=== PATIENT | female | born 1975 | race Caucasian/White ===

== ENCOUNTER 2022-06-03 10:47 | Outpatient (CLI) | payer OTHER, SELFPAY ==
--- NOTE | 2022-06-03 12:35 | W.ANESCHARGE ---
Anesthesia Charges Start Date/Time Anesthesia Start Date: 06/03/22 Anesthesia Start Time: 11:33 Stop Date/Time Anesthesia Stop Date: 06/03/22 Anesthesia Stop Time: 12:30 Summary Emergency: No
== END 2022-06-03 10:48 | disposition home or self-care (01) ==
LOC: OP CLINIC 10:48
PROVIDERS: PCP Family Medicine; Visit Provider Surgery
DX: Z12.11 Encounter for screening for malignant neoplasm of colon (principal); K63.5 Polyp of colon; K62.1 Rectal polyp; K64.4 Residual hemorrhoidal skin tags; Z80.0 Family history of malignant neoplasm of digestive organs
CPT/HCPCS: 00811; 45385; 88305; J2704

== ENCOUNTER 2022-06-24 15:19 | Outpatient (CLI) | payer OTHER, SELFPAY ==
--- NOTE | 2022-06-24 15:20 | CRLHL7_ITS ---
For Patients: As a result of the Century Cures Act, medical imaging exams and procedure reports are released immediately into your electronic medical record. You may view this report before your referring provider. If you have questions, please contact your health care provider. BILATERAL SCREENING MAMMOGRAM WITH COMPUTER-AIDED DETECTION TECHNIQUE: CC and MLO views were obtained. These mammographic images have been obtained using full-field digital technique. These mammographic images were interpreted with the benefit of computer-aided detection. COMPARISON FILM: 06/11/16. FINDINGS: The breasts are heterogeneously dense, which may obscure small masses IMPRESSION: There is no radiographic evidence for malignancy. ASSESSMENT: BI-RADS Category 2: Benign RECOMMENDATION: Routine screening mammogram in 1 year. A lay language report of this examination will be provided to the patient. Merrick Segura M.D. Diagnostic Radiologist [email or web address] Transcribed: 1:41 p.mIssac hernandez/Dictated by: Merrick Segura MD @ 06/30/2022 9:11:00 AM (Electronically Signed)
== END 2022-06-24 15:20 | disposition home or self-care (01) ==
LOC: MAMMO 15:20
PROVIDERS: PCP Family Medicine; Visit Provider Family Medicine
DX: Z12.31 Encounter for screening mammogram for malignant neoplasm of breast (principal); R92.2 Inconclusive mammogram
CPT/HCPCS: 77067

== ENCOUNTER 2023-05-07 14:30 | Outpatient (REF) | payer OTHER, SELFPAY ==
[2023-05-07 16:07] LABS: Chloride* 105 mmol/L (96-114); Potassium* 3.9 mmol/L (3.6-5.1); Sodium* 137 mmol/L (135-149)
[2023-05-07 16:10] LABS: Anion Gap 7 mEq/L (7-15); Blood Urea Nitrogen* 11 mg/dL (5-24); Carbon Dioxide* 25 mmol/L (20-32); Cholesterol* 123 mg/dL (90-199); Creatinine* 0.6 mg/dL (0.5-1.5); Estimated Glomerular Filt Rate 111 ml/min
[2023-05-07 16:11] LABS: Calcium* 9.2 mg/dL (8.4-10.6); Glucose* 102 mg/dL (60-115); HDL Cholesterol* 44 mg/dL (>=50); Hemoglobin A1C* 4.8 % (0-5.6); LDL Cholesterol Calculated 62 mg/dL (<100); Triglycerides* 85 mg/dL (40-149)
[2023-05-07 16:13] LABS: C Reactive Protein* 0.5 mg/dL (0.5-1.0)
[2023-05-07 16:31] LABS: Basophils Absolute Auto 0.03 K/uL (0.00-0.30); Basophils Percent Auto 0.4 % (0.0-3.0); Eosinophils Absolute Auto 0.08 K/uL (0.00-0.50); Eosinophils Percent Auto 1.1 % (0.0-7.0); Hematocrit 40.4 % (33.0-51.0); Hemoglobin* 13.5 gm/dL (12.0-16.0); Immature Granulocytes Abs Auto 0.04 K/uL (0.00-0.30); Immature Granulocytes Pct Auto 0.6 %; Lymphocytes Percent Auto 26.4 % (20-44); Mean Corpuscular HGB Conc 33 gm/dL (32-36); Mean Corpuscular Hemoglobin 30 pg (26-34); Mean Corpuscular Volume 90 fL (80-100); Monocytes Percent Auto 6.5 % (0.0-11.0); Neutrophils Absolute Auto 4.69 K/uL (1.7-7.0); Platelet Count* 258 K/uL (140-440); RDW Coefficient of Variation % 12.3 % (11.5-15.5); White Blood Count* 7.21 K/uL (4.50-11.00)
[2023-05-07 16:32] LABS: Slide Review Reflex No
[2023-05-07 16:49] LABS: Fibrinogen* 305 mg/dL (200-450)
[2023-05-07 19:39] LABS: Erythrocyte SedimentationRate* 3 mm/hr (2-20)
[2023-05-10 14:17] LABS: Homocysteine, Total 5 umol/L (0-15)
[2023-05-10 16:34] LABS: Protein C Functional 103 % (83-168); Protein S Functional 80 % (57-131)
[2023-05-10 17:33] LABS: Antithrombin, Enzymatic 105 % (76-128)
[2023-05-10 21:34] LABS: Anti-Nuclear Ab(ANA)IgG ELISA None Detected (None Detected)
[2023-05-11 16:23] LABS: FACV Specimen Whole Blood; Factor V Leiden (F5) Mutation Negative
== END 2023-05-07 14:31 | disposition home or self-care (01) ==
LOC: NPINS 14:30
PROVIDERS: PCP Family Medicine
DX: H34.8320 Tributary (branch) retinal vein occlusion, left eye, with macular edema (principal)
CPT/HCPCS: 80048; 80061; 81241; 83036; 83090; 85025; 85300; 85303; 85306; 85384; 85610; 85613; 85651; 85730; 86039; 86140; 86146; 86147

== ENCOUNTER 2024-09-28 07:46 | Outpatient (CLI) | payer OTHER, SELFPAY ==
--- NOTE | 2024-09-28 07:45 | CRLHL7_ITS ---
For Patients: As a result of the Century Cures Act, medical imaging exams and procedure reports are released immediately into your electronic medical record. You may view this report before your referring provider. If you have questions, please contact your health care provider. INDICATION: BILATERAL SCREENING MAMMOGRAM, ASYMPTOMATIC 48 Y/O FEMALE COMPARISON: 06/24/22, 06/11/16 TECHNIQUE: CC and MLO views were obtained. These mammographic images have been obtained using full-field digital technique. These mammographic images were interpreted with the benefit of computer aided detection and tomosynthesis. BREAST COMPOSITION: There are scattered areas of fibroglandular density. FINDINGS: No suspicious findings. ASSESSMENT: BI-RADS 1 Negative RECOMMENDATION: Annual screening mammogram. A lay language report of this examination will be provided to the patient. Dictated by: Merrick Segura MD @ 10/06/2024 10:46:03 (Electronically Signed)
== END 2024-09-28 07:47 | disposition home or self-care (01) ==
LOC: MAMMO 07:47
PROVIDERS: PCP Family Medicine; Visit Provider Family Medicine
DX: Z12.31 Encounter for screening mammogram for malignant neoplasm of breast (principal)
CPT/HCPCS: 77063; 77067

== ENCOUNTER 2025-02-26 11:24 | Emergency (ER) | payer OTHER, SELFPAY ==
--- OUTSIDE RECORDS SUMMARY | 2025-02-26 11:26 | XMS_ITS | Encounter Summary ---
Author Organization [employer] Address [address], [place] [address] Care Team Providers Care Wood Boatbuilder Apprentice Name Role Phone Daisy Easley APRN, CNM Primary Care Provi vijay Encounter Details Date Type Department Care Team (Late st Contact Info) Description 12/05/2016 Consent for Procedure/Treatm ent [facility] [address] [place] [address]. [place] [address] Milena Bush MD [address] [place] [id number] INFORMED CONSENT FOR SKIN BIOPSY Social History Tobacco Use Types Packs/Day Years Used Date Smoking Tobacco: Never Alcohol Use Standard Drinks/Week Comments No 0 (1 standard drink = 0.6 oz pur e alcohol) Comments No Sex and Gender Information Value Date Recorded Sex Assigned at Not on file Legal Sex Female 5:36 AM CDT Gender Identity Not on file Sexual Orientation Not on file documented as of this encounter Plan of Treatment Not on file documented as of this encounter Visit Diagnoses Not on filedocumented in this encounter Care Teams Wood Boatbuilder Apprentice Relationship Specialty Start Date End Date Daisy Easley APRN, CNM PCP - General Certified Nurse Construction Field Engineer 12/04/16 documented as of this encounter
--- OUTSIDE RECORDS SUMMARY | 2025-02-26 11:26 | XMS_ITS | Clinical Summary ---
Author Organization [employer] Address [address] [place] [id number] Care Team Providers Care Transport Rn Name Role Phone Pcp, No Primary Care Provider Unavailabl e Allergies Active Allergy Reactions Criticality Noted Date Comments Penicillins *Unknown 07/21/2015 Sulfa (Sulfonamide Antibiotics) *Unknown 07/03 Medications buPROPion (WELLBUTRIN XL) 150 mg Extended-Release tablet Take 1 tablet by mouth every morning. 0 07/21/2015 Active escitalopram oxalate (LEXAPRO) 5 mg tablet Take 5 mg by mouth once daily. 05/30/2021 Active Active Problems Problem Noted Date Diagnosed Date Adjustment disorder with depressed mood 02/14/20 08 Family History Medical History Relation Name Comments Good Health Daughter 1 Good Health Daughter 2 Good Health Son Relation Name Status Comments Daughter 1 Daughter 2 Son Social History Tobacco Use Types Packs/Day Years Used Date Smoking Tobacco: Never Smokeless Tobacco: Never Tobacco Cessation:Counseling Given: Yes Comments Unknown Sex and Gender Information Value Date Recorded Sex Assigned at Female 07/26/2020 7:37 AM RFID DEVELOPER Legal Sex Female 5:24 AM RFID DEVELOPER Gender Identity Female 07/26/2020 7:37 AM RFID DEVELOPER Sexual Orientation Straight 07/26/2020 7: 37 AM RFID DEVELOPER Obstetrics History Last Filed Vital Signs Vital Sign Reading Time Taken Comments Blood Pressure 104/69 07/21/2015 12:50 PM RFID DEVELOPER Pulse 82 07/02/2021 2:05 PM RFID DEVELOPER Temperature 36.8 C (98.2 F) 07/21/2015 12:50 PM RFID DEVELOPER Respiratory Rate - - Oxygen Saturation 98% 07/02/2021 2:05 PM RFID DEVELOPER Inhaled Oxygen Concentration - - Weight 73.5 kg (162 lb) 07/02/2021 2:05 PM RFID DEVELOPER Height - - Body Mass Index - - Plan of Treatment Health Maintenance Due Date Last Done Comments Tetanus booster 1985 HIV for age 15-65 1989 BMI (ht and wt on same day) for age 18+ 1992 Hepatitis C screening for age 18-79 1992 Hepatitis B series for 19+ ( 1 of 3 - 19+ 3-dose series) 1993 Pap test for age 21-65 12/18/1995 Colonoscopy through age 75 12/18/2019 Lipids for age 45-75 12/18/2019 Mammogram for age 45-75 12/18/2019 Depression screening for age 12+ 08/20/2021 08/21/19 21 Pneumococcal series for age 50+ (1 of 1 - PCV) 2024 Zoster (shingles) series for age 50+ (1 of 2) 2024 COVID-19 vaccine series ( - 2024- season) 2025 04/17/2021, 06/27/2020, 06/06/2020 Influenza Vaccine (#1) 2025 RSV vaccine for adults or pr egnancy (1 - 1-dose 75+ series) 2049 Insurance MEDICA CHOICE Care Teams Transport Rn Relationship Specialty Start Date End Date Pcp, No . PCP - General 10/02/15
--- OUTSIDE RECORDS SUMMARY | 2025-02-26 11:27 | XMS_ITS | Clinical Summary ---
Author Organization [employer] Address [address] [place] [address] Care Team Providers Care Dispatcher Motor Vehicle Name Role Phone Daisy Easley APRN, CNM Primary Care Provi vijay Source Comments You are receiving this document as you are listed as the primary care provider,follow-up provider, or the patient has been referred to you for consultation.This is in compliance with the Medicare and[facility] EHR Incentive Program,which states Providers who transition their patient to another setting of careor provider of care or refers their patient to another provider of care shouldprovide summary care record for each transition of care or referral. [employer] Allergies Active Allergy Reactions Criticality Noted Date Comments Penicillins 09/15/2006 Sulfa Antibiotics 09/15/2006 Medications buPROPion (WELLBUTRIN SR) 150 MG 12 hour release tablet Take 150 mg by mouth two times a day. Active Active Problems Problem Noted Date Diagnosed Date 01/18/2013 Immunizations Immunization Administration Dates Next Due Pfizer Monovalent 12+ Purple Top 06/27/2020,0 10/2020 Td (7+ yrs) 09/15/2006 Social History Tobacco Use Types Packs/Day Years Used Date Smoking Tobacco: Never Alcohol Use Standard Drinks/Week Comments No 0 (1 standard drink = 0.6 oz pur e alcohol) Comments No Sex and Gender Information Value Date Recorded Sex Assigned at Not on file Legal Sex Female 5:36 AM CDT Gender Identity Not on file Sexual Orientation Not on file Last Filed Vital Signs Vital Sign Reading Time Taken Comments Blood Pressure 109/67 09/07/2016 4:29 PM CDT Pulse 77 09/07/2016 4:29 PM CDT Temperature 36.6 C (97.8 F) 09/07/2016 4:29 PM CDT Respiratory Rate 20 09/15/2006 4:13 AM CDT Oxygen Saturation 100% 09/15/2006 4:13 AM CDT Inhaled Oxygen Concentration - - Weight 70.9 kg (156 lb 6.4 oz) 09/07/2016 4:29 P M CDT Height - - Body Mass Index - - Plan of Treatment Health Maintenance Due Date Last Done Comments Cervical Cancer Screening Due 1974 Colon Cancer Screening Plan Due 1974 Adult Preventive Visit 1992 HepB Vaccine (1) 1993 DTaP/Tdap/Td Vaccine (1 - Tdap) 10/09/2016 10/08/2016, 09/15/2006 Mammogram 06/11/2017 06/11/2016 Cholesterol 12/18/2019 Pneumococcal Vaccine 50+ Yrs (1 of 1 - PCV) 2024 Zoster/Shingles Vaccine (1 o f 2) 2024 COVID-19 Vaccine (3 - 2024-2 6 season) 2025 06/27/2020, 06/06/2020 Influenza Vaccine (#1) 2025 HIV Screening (Preventive Services) Completed 09/15/2006 Hep C Screening (Preventive Services) Completed 09/15/2006 HepA Vaccine Aged Out No longer eligi ble based on patient's age to complete this topic Hib Vaccine Aged Out No longer eligi ble based on patient's age to complete this topic IPV (Polio) Vaccine Aged Out No longe r eligible based on patient's age to complete this topic MCV4 Vaccine Aged Out No longer eligi ble based on patient's age to complete this topic Meningococcal B Vaccine Aged Out No l onger eligible based on patient's age to complete this topic Procedures Procedure Name Priority Date/Time Associated Diagnosis Comments MM MAMMOGRAM SCREENING BILAT W 3D ARTIE W CAD Routine 06/11/2016 8:07 AM SOYFREEZE OPERATOR Encounter for screening mammogram for malignant neoplasm of breast RAPID HIV SCREEN STAT 09/15/2006 5:00 AM CDT HEPATITIS C ANTIBODY, WITH REFLEX (ANTI-HCV) Routine 09/15/2006 5:00 AM CDT from Last 3 Months or Most Recently Relevant to Health Maintenance Results * MM Mammogram Screening Bilat W Artie W CAD (06/11/2016 8:07 AM SOYFREEZE OPERATOR) Anatomical Region Laterality Modality Breast Bilateral Mammography Impressions 06/11/2016 9:39 AM SOYFREEZE OPERATOR : ACR BI-RADS Category 1: Negative RECOMMENDATION: Follow Up Imaging in 12 months - Bilateral The results and recommendations of this examination will be communicated to the patient. Narrative 06/11/2016 9:39 AM SOYFREEZE OPERATOR MM MAMMOGRAM SCREENING BILAT W ARTIE W CAD performed on 06/11/16 No comparisons were made when reading this study. Baseline. FINDINGS: Bilateral screening mammogram was performed with the assistance of Computer-Aided Detection and breast tomosynthesis. The breasts are heterogeneously dense, which may obscure small masses. There is no radiographic evidence of malignancy. us Leah Newell FLOTATION OPERATOR, CNM RAD DONTE Final R esult * RAPID HIV (09/15/2006 5:00 AM CDT) Pathologist [facility] [place] Rapid HIV Nonreactive by rapid EIA. RHIVN [facility] 09/15/2006 5:00 AM CDT 09/15/2006 5:33 AM CDT us Ana María Eisenberg MD LAB_1 Final Result [place], [place] [phone] * HEPATITIS C AB (09/15/2006 5:00 AM CDT) Anti-HCV Non-React irvin NR [facility] Comment: Does Not Rule Out Infection with HCV Performed at [facility] 09/15/2006 5:00 AM CDT 09/15/2006 5:33 AM CDT us Ana María Eisenberg MD LAB_1 Final Result [place], [place] [phone] from Last 3 Months or Most Recently Relevant to Health Maintenance Insurance MEDICA CHOICE [address] [id number] Care Teams Dispatcher Motor Vehicle Relationship Specialty Start Date End Date Daisy Easley APRN, EMELINA PCP - General Certified Nurse Reference Investigator 12/04/16
[2025-02-26 11:29] VITALS: BP 111/61; PULSE 82; RESP 16; TEMP 36.6; O2SAT 99; BMI 25.8
--- NOTE | 2025-02-26 11:36 | CRLHL7_ITS ---
For Patients: As a result of the Century Cures Act, medical imaging exams and procedure reports are released immediately into your electronic medical record. You may view this report before your referring provider. If you have questions, please contact your health care provider. INDICATION: Fall and foot injury, pain, fall TECHNIQUE: Foot radiograph 3 views right COMPARISON: None FINDINGS: Bone: There is a nondisplaced transverse intra-articular fracture present at the base of the 5th metatarsal. Stage 1 (mild) metatarsus primus varus hallux valgus deformity is present. The Hallux angle measures 19 degrees. No significant proliferative osseous changes are seen over the medial eminence of the 1st metatarsal head. Joint: The visualized hindfoot, midfoot, and forefoot joints are unremarkable in appearance. No significant ankle effusion is seen. Soft tissue: Unremarkable. No radiopaque foreign bodies are seen. IMPRESSION: 1. There is a nondisplaced transverse intra-articular fracture present at the base of the 5th metatarsal. Dictated by Silvestre Taveras MD @ 02/26/2025 12:47:34 PM Dictated by: Silvestre Taveras MD @ 02/26/2025 12:47:37 (Electronically Signed)
--- NOTE | 2025-02-26 12:06 | ED_ITS ---
HPI - General Adult General Chief complaint: Extremity Pain/Injury, Lower Stated complaint: R foot injury Time Seen by Provider: 02/26/25 11:33 Source: patient Mode of arrival: ambulatory Limitations: no limitations History of Present Illness HPI narrative: 49-year-old female presenting today with right foot pain. Patient states that she was not working yesterday in her foot ruled when she stepped on top of the wound. She fell but she was able to get up and finish walking home. She states however that as the day went by the pain in her foot got so much worse, to the point where she was unable to bear weight on it any longer by the end of the day and certainly not today. Denies other injury. No ankle or knee pain. Pain is located on the the middle of the foot. Related Data Home Medications ?Medication ?Instructions ?Recorded ?Confirmed cholecalciferol (vitamin D3) 125 5,000 unit PO DAILY 1 07/28/21 09/24/23 mcg (5,000 unit) tablet valacyclovir 1 gram tablet 1,000 mg PO .QD 05/27/22 Vyvanse 02/26/25 Previous Rx's ?Medication ?Instructions ?Recorded bupropion HCl 150 mg 24 hr tablet, 150 mg PO QAM #90 t abs 02/20/22 extended release sumatriptan succinate 25 mg tablet 25 mg PO Q2H for he adache #9 tabs 11/13/23 Allergies Allergy/AdvReac Type Severity Reaction Status Date / Time Penicillin Allergy Intermediate Hives Uncoded 09/24/23 09:00 Sulfa Antibiotics Allergy Intermediate Hives Uncoded 09/24/23 09:00 Review of Systems Status of ROS: Reports: 6 or more systems reviewed and unremarkable except as noted in History and below [facility] Medical History History of gestational diabetes mellitus (GDM) ?Z86.32 - Personal history of gestational diabetes (ICD-10) Surgical History History of tonsillectomy ?Z90.89 - Acquired absence of other organs (ICD-10) Family History Father Colon cancer, Onset Age: 63 Social History Smoking Status: Never smoker How often do you have a drink containing alcohol: never AUDIT-C Alcohol total score: 0 Non-prescribed substance use: denies use Exam Narrative: Exam Narrative: Well-nourished well-developed patient in no acute distress. Alert and oriented. Answers questions appropriately. Mood and affect are appropriate. Thoughts are goal oriented and rational. No tangential or magical thinking noted. Patient speaks in full sentences without needing to catch her breath. HEENT: Normocephalic atraumatic. Extraocular muscles are intact. Conjunctivae are moist without any icterus noted. Extremities: Patient has bruising on the dorsum of the midfoot. No significant bony tenderness there. But she does have tenderness with pressure on the sole of the foot in that same area. Wiggles her toes without difficulty. No pain or swelling at the ankle, full range of motion. Const: Vital Signs, click to edit/add: Vital Signs - 24 hr 02/26/25 11:29 Temperature 97.9 F Pulse Rate [Pulse Oximeter] 82 Respiratory Rate 16 Blood Pressure [Ri ght Upper Arm] 111/61 Pulse Oximetry 99 Oxygen Delivery Me thod Room Air Course Course ED Course: X-ray of the foot was obtained. X-ray, read by me, shows a fracture of the proximal 5th metatarsal. Vital Signs Vital signs: Initial Vital Signs Temperature 97.9 F 02/26/25 11:29 Temperature Source Temporal Artery Scan 02/26/25 11:29 Pulse Rate 82 02/26/25 11:29 Respiratory Rate 16 02/26/25 11:29 Blood Pressure 111/61 02/26/25 11:29 Blood Pressure Mean 77 02/26/25 11:29 Blood Pressure Position Sitting 02/26/25 11:29 Pulse Oximetry 99 02/26/25 11:29 Oxygen Delivery Method Room Air 02/26/25 11:29 Vital Signs Temperature 97.9 F 02/26/25 11:29 Pulse Rate 82 02/26/25 11:29 Respiratory Rate 16 02/26/25 11:29 Blood Pressure 111/61 02/26/25 11:29 Pulse Oximetry 99 02/26/25 11:29 Oxygen Delivery Method Room Air 02/26/25 11:29 Temperature 97.9 F 02/26/25 11:29 Pulse Rate 82 09/28/25 11:29 Respiratory Rate 16 02/26/25 11:29 Blood Pressure 111/61 02/26/25 11:29 Pulse Oximetry 99 02/26/25 11:29 Oxygen Delivery Method Room Air 02/26/25 11:29 Medical Decision Making MDM Narrative Medical decision making narrative: 49-year-old female with fracture of the proximal 5th metatarsal. Patient placed in a Cam boot today. Will follow-up with orthopedics next week. Imaging Data X-ray foot: Attestation: I have reviewed the pertinent imaging results. Radiologist's impression: TECHNIQUE: Foot radiograph 3 views right COMPARISON: None FINDINGS: Bone: There is a nondisplaced transverse intra-articular fracture present at the base of the 5th metatarsal. Stage 1 (mild) metatarsus primus varus hallux valgus deformity is present. The Hallux angle measures 19 degrees. No significant proliferative osseous changes are seen over the medial eminence of the 1st metatarsal head. Joint: The visualized hindfoot, midfoot, and forefoot joints are unremarkable in appearance. No significant ankle effusion is seen. Soft tissue: Unremarkable. No radiopaque foreign bodies are seen. IMPRESSION: 1. There is a nondisplaced transverse intra-articular fracture present at the base of the 5th metatarsal. Discharge Plan Discharge Clinical Impression: Fracture of 5th metatarsal Patient Disposition: Home, Self-Care Condition: Stable Additional Instructions: Wear boot at all times. Rest, ice and elevate today. Do not ice for more than 20 minutes at a time every 2 hours. Do not apply ice directly to the skin. Follow-up with orthopedics as scheduled. Prescriptions: No Action valacyclovir 1 gram tablet 1,000 mg PO .QD Patient Comments: TAKE 1 TABLET BY MOUTH EVERY DAY cholecalciferol (vitamin D3) 125 mcg (5,000 unit) tablet 5,000 unit PO DAILY Vyvanse bupropion HCl 150 mg tablet extended release 24 hr 150 mg PO QAM Qty: 90 0RF sumatriptan succinate 25 mg tablet 25 mg PO Q2H Qty: 9 0RF Follow Up/Referrals: Milo Bustamante MD [Primary Care Provider, Family Practice] Stand Alone Forms: [facility] Info Instructions
== END 2025-02-26 13:29 | disposition home or self-care (01) ==
PROVIDERS: Emergency Provider Family Medicine; PCP Family Medicine
DX: S92.354A Nondisplaced fracture of fifth metatarsal bone, right foot, initial encounter for closed fracture (principal); W18.31XA Fall on same level due to stepping on an object, initial encounter; Y93.01 Activity, walking, marching and hiking
CPT/HCPCS: 73630; 99283; 99284